=== PATIENT | female | born 2000 | race Caucasian/White ===

== ENCOUNTER 2019-06-14 10:13 | Emergency (ER) | payer BC ==
[~2019-06-14] VITALS: Ht 172.7 cm; Wt 105.7 kg
[2019-06-14 10:18] VITALS: BP 143/73
[2019-06-14] MEDS ORDERED: IBUPROFEN 800 MG TAB PO ONE (10:50)
[2019-06-14 11:54] VITALS: BP 133/81
== END 2019-06-14 11:52 | disposition home or self-care (01) ==
LOC: MED 10:13
DX: S83.92XA Sprain of unspecified site of left knee, initial encounter (principal); M25.462 Effusion, left knee; X58.XXXA Exposure to other specified factors, initial encounter; Y93.39 Activity, other involving climbing, rappelling and jumping off; Y92.89 Other specified places as the place of occurrence of the external cause; Y99.8 Other external cause status
CPT/HCPCS: 73562; 81025; 99283